=== PATIENT | female | born 2000 | race Two or more races ===

== ENCOUNTER 2024-10-16 10:08 | Outpatient (OUT) | payer OTHER, SELFPAY ==
--- NOTE | 2024-10-16 10:28 | XR_ITS ---
The [address] [address] Patient Name: SIDDHARTHA BLAKE MRN: [id number] date: 2000 Sex: F Assigned Patient Location: RAD Current Patient Location: RAD Accession/Order Number: [id number] Exam Date: 10/16/2024 10:30 Report Date: 10/16/2024 11:48 At the request of: MABEL KU Procedure: XR chest 2V EXAMINATION: XR chest 2V HISTORY: Fever, Nausea, Fever, Chills , shortness of breath COMPARISON: XR chest 03/14/2022 FINDINGS: LUNGS: Slight wall thickening of a few central bronchi bilaterally. No peripheral infiltrates. VASCULATURE: No increased pulmonary vasculature. PLEURA: No pneumothorax, effusion, or pleural thickening. CARDIAC: No cardiomegaly or cardiac silhouette abnormality. MEDIASTINUM: No visible mass or adenopathy. BONES: No fracture or visible bone lesion. OTHER: Negative. XR/XR chest 2V IMPRESSION: 1. Suspect mild bronchiolitis. Electronically authenticated by: PO DELATORRE Date: 10/16/2024 11:48
== END 2024-10-16 10:09 | disposition home or self-care (01) ==
LOC: RAD 10:14
PROVIDERS: Visit Provider Nurse Practitioner Primary Care
DX: R06.02 Shortness of breath (principal); R11.0 Nausea; R51.9 Headache, unspecified; R50.9 Fever, unspecified
CPT/HCPCS: 71046